=== PATIENT | male | born 1990 | race American Indian/Alaskan Native ===

== ENCOUNTER 2018-02-27 03:13 | Emergency (ER) | payer SELFPAY ==
[2018-02-27 03:57] LABS: Basophils % (Auto) 0.8 % (0.0-1.8); Eosinophils # (Auto) 0.8 K/mm3 (0.0-0.4); Eosinophils % (Auto) 13.1 % (0.0-4.3); Lymphocytes # (Auto) 1.3 K/mm3 (1.2-5.4); Mean Corpuscular HGB Conc 32 % (32-34); Monocytes # (Auto) 0.3 K/mm3 (0.0-0.8); Monocytes % (Auto) 5.2 % (0.0-7.3); Platelet Count 200 K/mm3 (140-440); Red Blood Count 5.36 M/mm3 (3.65-5.03); Red Cell Distribution Width 16.1 % (13.2-15.2)
[2018-02-27 04:03] LABS: Mean Corpuscular Volume 63 fl (84-94)
[2018-02-27 04:04] LABS: Mean Corpuscular Hemoglobin 20 pg (28-32)
[2018-02-27 04:13] LABS: BUN/Creatinine Ratio 21; Blood Urea Nitrogen 15 mg/dL (9-20); Calcium 8.8 mg/dL (8.4-10.2); Hemolysis Index 0
[2018-02-27] MEDS ORDERED: MOTRIN PO ONE (04:35)
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
--- NOTE | 2018-02-27 08:01 | Cat Scan Report ---
FINAL REPORT EXAM: CT HEAD/BRAIN WO CON HISTORY: new onset seizure TECHNIQUE: Routine axial imaging was obtained of the brain without IV contrast. There are no previous studies available for comparison. FINDINGS: The ventricular system is appropriate in size and is symmetric. There is no evidence of acute stroke or hemorrhage. There are no extra-axial fluid collections. The visualized sinuses are clear. The mastoid air cells are well pneumatized. The calvarium appears intact. IMPRESSION: No acute intracranial process.
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
[2018-02-27] MEDS ORDERED: TYLENOL PO PRN (13:18)
[2018-02-27] MEDS ORDERED: GEODON IM PRN (13:18)
[2018-02-27] MEDS ORDERED: MILK OF MAGNESIA PO PRN (13:18)
[2018-02-27] MEDS ORDERED: ALUM-MAG HYDROX-SIMETH 200-200-20MG/5ML PO PRN (13:18)
[2018-02-27 13:58] LABS: Bacteria,Urine 1+ /HPF (Negative); Bilirubin,Urine NEG (Negative); Blood,Urine NEG (Negative); Color,Urine Yellow (Yellow); Mucus,Urine 1+ /HPF; Protein,Urine <15 mg/dL mg/dL (Negative)
[2018-02-27 14:02] LABS: Amphetamine Screen,Urine PRESUMPTIVE NEGATIVE; Benzodiazepines Screen,Urine PRESUMPTIVE NEGATIVE; Cannabinoid Screen,Urine PRESUMPTIVE NEGATIVE; Cocaine Screen,Urine PRESUMPTIVE NEGATIVE; Methadone Screen,Urine PRESUMPTIVE NEGATIVE; Opiate Screen,Urine PRESUMPTIVE NEGATIVE
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
[2018-03-01] MEDS: RisperDAL PO SCH (22:20)
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
[2018-03-02] MEDS: RisperDAL PO SCH (22:03)
[2018-03-03] MEDS ORDERED: BOOSTRIX IM ONE ×4 (10:19→11:34)
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
[2018-03-03] MEDS ORDERED: RisperDAL PO SCH (18:53)
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
--- NOTE | 2018-03-04 12:31 | Emergency Department Report ---
Blank Doc - Documentation Documentation: She was seen by mental health assessors as well as a psychiatrist and the patient is now calm down is no longer having any injures behaviors and suicidal gestures. Patient states he he does needs a work note for his job and states that he has no thoughts of hurting himself. Patient said "I'm too Q to kill myself" patient will be discharged all he has his medications and follow-up plan has been placed on the chart.
[2018-03-04 12:43] VITALS: BP 125/97
== END 2018-03-04 12:48 | disposition home or self-care (01) ==
LOC: EEVIPCON 03:13 → ED 03:13
DX: S51.832A Puncture wound without foreign body of left forearm, initial encounter (principal); S41.101A Unspecified open wound of right upper arm, initial encounter; F31.9 Bipolar disorder, unspecified; X78.8XXA Intentional self-harm by other sharp object, initial encounter; Y93.89 Activity, other specified; Y99.8 Other external cause status; Y92.89 Other specified places as the place of occurrence of the external cause
CPT/HCPCS: 36415; 70450; 73090; 80048; 80307; 81001; 82550; 83735; 85025; 90471; 90715; 99285; G0480; 80320; J3486

== ENCOUNTER 2018-07-12 01:13 | Emergency (ER) | payer SELFPAY ==
[2018-07-12] MEDS ORDERED: GEODON IM ONE ×3 (02:30→09:04)
[2018-07-12] MEDS ORDERED: ATIVAN IV ONE (02:35)
[2018-07-12] MEDS ORDERED: ATIVAN ONE ×2 (02:36→21:44)
[2018-07-12 04:13] LABS: Amphetamine Screen,Urine PRESUMPTIVE NEGATIVE; Benzodiazepines Screen,Urine PRESUMPTIVE NEGATIVE; Cannabinoid Screen,Urine PRESUMPTIVE NEGATIVE; Cocaine Screen,Urine PRESUMPTIVE NEGATIVE; Methadone Screen,Urine PRESUMPTIVE NEGATIVE; Opiate Screen,Urine PRESUMPTIVE NEGATIVE
--- NOTE | 2018-07-12 04:27 | Cat Scan Report ---
FINAL REPORT EXAM: CT HEAD/BRAIN WO CON HISTORY: head injury TECHNIQUE: CT imaging acquired through the head without intravenous contrast. Transaxial reformatio ns are provided. PRIORS: 02/27/2018 FINDINGS: The ventricles, cisterns and sulci are normal. No intraparenchymal or extra-axial mass, hemorrhage, o r mass effect. Luevano and white-matter differentiation is normal. Normal spherical shape of the globes. Paranasal sinuses and mastoid air cells are clear. Frontal scal p soft tissue injury. No skull or facial fracture visualized. IMPRESSION: No acute intracranial abnormality. Frontal scalp soft tissue injury. No skull fracture.
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
[2018-07-12] MEDS ORDERED: ATIVAN IM ONE ×2 (09:05→21:41)
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
[2018-07-12] MEDS ORDERED: WATER FOR INJ Sterile (PF) 10 ML ONE (09:14)
[2018-07-12] MEDS ORDERED: KETALAR IM ONE (09:28)
--- NOTE | 2018-07-12 10:54 | Cat Scan Report ---
CT HEAD WITHOUT CONTRAST INDICATION: Head trauma. COMPARISON: 3:30 AM earlier today. FINDINGS: Noncontrast head CT, 10:13 AM, 07/12/2018 demonstrates stable ventricles and sulci. No acute infarct, hemorrhage, mass effect or midline shift. No abnormal extra axial fluid collections. Normal posterior fossa with preserved basilar cisterns. Midline frontal scalp swelling/hematoma superiorly again noted, axial image 57, though now slightly diffused. Intact calvarium. Hypoplastic right frontal sinus. Clear remainder imaged aerated paranasal sinuses and mastoid air cells. CONCLUSION: No acute intracranial CT abnormality or significant interval change with frontal scalp soft tissue swelling again noted, as described. Thank you for the opportunity to participate in this patient's care.
[2018-07-12] MEDS ORDERED: HALDOL IM ONE (21:40)
[2018-07-12] MEDS ORDERED: BENADRYL IM ONE (21:41)
[2018-07-12] MEDS ORDERED: BENADRYL ONE (21:44)
[2018-07-12] MEDS ORDERED: HALDOL ONE (21:44)
[2018-07-13 06:25] VITALS: BP 121/76
== END 2018-07-13 06:25 ==
LOC: ED 01:13
DX: S00.81XA Abrasion of other part of head, initial encounter (principal); F44.5 Conversion disorder with seizures or convulsions; F31.9 Bipolar disorder, unspecified; X83.8XXA Intentional self-harm by other specified means, initial encounter; Y93.89 Activity, other specified; Y92.89 Other specified places as the place of occurrence of the external cause; Y99.8 Other external cause status
CPT/HCPCS: 70450; 80307; 96372; 96374; 99285; J1200; J1630; J2060; J3486

== ENCOUNTER 2019-08-31 17:29 | Emergency (ER) | payer OTHER ==
[2019-08-31 18:18] VITALS: BP 138/53
--- NOTE | 2019-08-31 19:11 | Emergency Department Report ---
ED General Adult HPI - General Chief complaint: Psych Stated complaint: SEIZURE Time Seen by Provider: 08/31/19 19:08 Source: EMS Mode of arrival: Stretcher Limitations: Altered Mental Status - History of Present Illness Initial comments: 28 y.o. male with a history of seizure disorder presents after having a presumptive seizure per police. Patient is ambulatory and talkative with police lieutenant until he was told he is going to long-term and then patient began to shake per please officer. Currently patient is not willing to verbalize what is causing him to be here in the emergency department today. Patient does not state if he is on any medications at all. 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 - Related Data Home Medications Medication Instructions Recorded Confirmed Last Taken Unobtainable 07/12/18 07/12/18 Unknown Allergies Allergy/AdvReac Type Severity Reaction Status Date / Time No Known Allergies Allergy Unverified 02/15/13 17:14 ED Review of Systems ROS: Stated complaint: SEIZURE Other details as noted in HPI Comment: not cooperative Neurological: other (seizure) ED Past Medical Hx - Past Medical History Previous Medical History?: Yes Hx Seizures: Yes (No meds) Hx Psychiatric Treatment: Yes ([place]) Additional medical history: hx of bipolar and previous suicide attempt - Surgical History Past Surgical History?: No - Social History Smoking Status: Current Every Day Smoker Substance Use Type: None - Medications Home Medications: Home Medications Medication Instructions Recorded Confirmed Last Taken Type Unobtainable 07/12/18 07/12/18 Unknown History ED Physical Exam - General Limitations: Altered Mental Status General appearance: other (moving around; non communicative) - Head Head exam: Present: atraumatic, normocephalic - Eye Eye exam: Present: normal appearance - ENT ENT exam: Present: mucous membranes dry - Neck Neck exam: Present: normal inspection - Respiratory Respiratory exam: Present: normal lung sounds bilaterally. Absent: respiratory distress - Cardiovascular Cardiovascular Exam: Present: regular rate, normal rhythm. Absent: systolic murmur, diastolic murmur, rubs, gallop - GI/Abdominal GI/Abdominal exam: Present: soft, normal bowel sounds. Absent: tenderness - Rectal Rectal exam: Present: deferred - Extremities Exam Extremities exam: Present: normal inspection - Back Exam Back exam: Present: normal inspection - Neurological Exam Neurological exam: Present: other (moving all extremities) - Psychiatric Psychiatric exam: Present: agitated, other (non communicative) - Skin Skin exam: Present: warm, dry, intact, normal color. Absent: rash ED Course Vital Signs 08/31/19 18:12 Temperature 98.3 F Pulse Rate 73 Respiratory 17 Rate Blood Pressure 138/53 O2 Sat by Pulse 100 Oximetry ED Medical Decision Making - Lab Data Result diagrams: 08/31/19 19:46 08/31/19 19:46 - EKG Data -: EKG Interpreted by Me EKG shows normal: sinus rhythm Rate: normal, bradycardia - EKG Data When compared to previous EKG there are: no significant change Interpretation: no acute changes - Medical Decision Making Patient has normal EKG and normal CT of the head. Patient has a normal EKG and a normal chest x-ray. Patient to be discharged to follow-up and will be taken to long-term with [facility] officer. - Differential Diagnosis Seizure; Intracranial Bleed; Anemia; Electrolyte Abnormality Critical care attestation.: If time is entered above; I have spent that time in minutes in the direct care of this critically ill patient, excluding procedure time. ED Disposition Clinical Impression: Seizure, Chest pain Disposition: -01 TO HOME OR SELFCARE Is pt being admited?: No Does the pt Need Aspirin: No Condition: Stable Instructions: Chest Pain (ED) Referrals: PRIMARY CARE, [Primary Care Provider] - 3-5 Days Time of Disposition: 00:53 Print Language: BRUNEIAN
[2019-08-31] MEDS ORDERED: AMMONIA INHALANT IH ONE (19:21)
[2019-08-31] MEDS ORDERED: LORazepam 2 MG/ML VIAL IM ONE (19:21)
[2019-08-31 20:30] LABS: Basophils % (Auto) 0.3 % (0.0-1.8); Eosinophils # (Auto) 0.1 K/mm3 (0.0-0.4); Eosinophils % (Auto) 1.7 % (0.0-4.3); Hemoglobin 11.8 gm/dl (11.8-15.2); Lymphocytes # (Auto) 1.3 K/mm3 (1.2-5.4); Mean Corpuscular HGB Conc 32 % (32-34); Monocytes # (Auto) 0.4 K/mm3 (0.0-0.8); Platelet Count 219 K/mm3 (140-440); Red Blood Count 5.81 M/mm3 (3.65-5.03)
[2019-08-31 20:31] LABS: Mean Corpuscular Volume 64 fl (84-94)
--- NOTE | 2019-08-31 20:45 | XRay Report ---
CHEST 1 VIEW INDICATION: MAIN: chest pain...AMS seizure. COMPARISON: None. FINDINGS: Support devices: None. Heart: Normal. Lungs/Pleura: There are low lung volumes. No acute pulmonary or pleural findings. IMPRESSION: 1. No acute findings. Signer Name: Toby Gu MD Signed: 08/31/2019 8:41 PM Workstation Name: [id number]
[2019-08-31 20:51] LABS: Alanine Aminotransferase 22 units/L (7-56); Albumin 4.4 g/dL (3.9-5); BUN/Creatinine Ratio 17; Blood Urea Nitrogen 12 mg/dL (9-20); Calcium 9.6 mg/dL (8.4-10.2); Hemolysis Index 9
--- NOTE | 2019-09-01 00:45 | Cat Scan Report ---
CT HEAD WITHOUT CONTRAST HISTORY: This patient is a prisoner. He's been acting extremely combative and uncooperative. Pt had an alleged seizure today. COMPARISON: None TECHNIQUE: CT imaging of the head was performed in the axial, sagittal, and coronal projections and bone algori thm in axial projection in the soft tissue algorithm. All CT scans at this location are performed using CT dose reduction for ALARA by means of automated e xposure control. CONTRAST: None. FINDINGS: Exam is compared 07/12/2018 Cerebral and Cerebellar Hemispheres: No evidence of mass or mass effect. No midline shift. No acute hemorrhage. No acute cortical infarction. No extra-axial fluid collection. Ventricles: Normal in size and configuration for age. Osseous Structures: No significant abnormality. Visualized Paranasal Sinuses: No significant abnormality. Additional Findings: None IMPRESSION: 1. No acute intracranial abnormality. NOTE: Acute infarct may not be visible by noncontrast CT. Signer Name: Apolinar Ng MD Signed: 09/01/2019 12:41 AM Workstation Name: [id number]
== END 2019-09-01 01:07 | disposition home or self-care (01) ==
LOC: ED 17:29 → EEVIPCON 17:29 → ED 09-01 01:07
DX: R56.9 Unspecified convulsions (principal); R07.9 Chest pain, unspecified; F31.9 Bipolar disorder, unspecified; F17.200 Nicotine dependence, unspecified, uncomplicated
CPT/HCPCS: 36415; 70450; 71045; 80053; 80320; 84484; 85025; 93005; 93010; 99284; G0480